=== PATIENT | female | born 1945 | race Caucasian/White ===

== ENCOUNTER 2024-04-02 00:10 | Inpatient (IN) | payer MEDICARE ==
[~2024-04-02] VITALS: Ht 162.6 cm; Wt 79.2 kg
[2024-04-02 01:21] LABS: Albumin, Blood 3.1 g/dL (3.4-5.0); Albumin/Globulin Ratio 0.8 (0.8-1.8); Bilirubin, Total 1.1 mg/dL (0.1-1.0); Bun/Creatinine Ratio 15.1 (12.0-20.0); Calcium, Blood 8.6 mg/dL (8.5-10.1); Creatinine, Blood 0.86 mg/dL (0.40-1.00); Globulin, Blood 3.9 g/dL (2.2-4.0)
[2024-04-02 01:35] LABS: BASOPHILS ABSOLUTE AUTO 0.04 K/mm3 (0.00-0.23); BASOPHILS PERCENT AUTO 0 % (0-2); EOSINOPHILS ABSOLUTE AUTO 0.01 K/mm3 (0.00-0.68); EOSINOPHILS PERCENT AUTO 0 % (0-6); Hematocrit 34.8 % (33.0-51.0); Hemoglobin 11.5 g/dL (11.5-16.0); IMMATURE GRAN ABSOLUTE AUTO 0.11 K/mm3 (0.00-0.10); IMMATURE GRAN PERCENT AUTO 1 % (0-1); LYMPHOCYTES ABSOLUTE AUTO 0.76 K/mm3 (0.84-5.20); LYMPHOCYTES PERCENT AUTO 4 % (21-46); MONOCYTES ABSOLUTE AUTO 1.79 K/mm3 (0.16-1.47); MONOCYTES PERCENT AUTO 9 % (4-13); Mean Corpuscular HGB 28.7 pg (26.0-34.0); Mean Corpuscular Volume 87 fL (80-100); Mean Platelet Volume 10.5 fL (9.1-12.4); NEUTROPHILS ABSOLUTE AUTO 16.53 K/mm3 (1.96-9.15); NEUTROPHILS PERCENT AUTO 86 % (41-73); Platelet Count 299 K/mm3 (150-400); RDW Standard Deviation 45.2 fL (35.1-46.3); Red Blood Cell Count 4.01 M/mm3 (3.80-5.20); White Blood Cell Count 19.24 K/mm3 (4.00-11.30)
[2024-04-02 01:56] LABS: Influenza A, PCR NEGATIVE (NEGATIVE); Influenza B, PCR NEGATIVE (NEGATIVE); Resp Syncytial Virus, PCR NEGATIVE (NEGATIVE); SARS-Cov-2 (COVID-19) PCR, MMC NEGATIVE (NEGATIVE)
[2024-04-02] MEDS ORDERED: Azithromycin 500 MG in NS 250 ML IV ONE (02:05)
[2024-04-02] MEDS ORDERED: CefTRIAXone Sodium 1,000 MG in NS 50 ML IV ONE (02:05)
[2024-04-02] MEDS ORDERED: Azithromycin 500 MG in NS 250 ML IV SCH (02:05)
[2024-04-02] MEDS ORDERED: NS 1,000 ML IV SCH ×2 (02:10→03:40)
[2024-04-02] MEDS ORDERED: Magnesium Hydroxide Conc 10 ML UDC PO PRN (03:40)
[2024-04-02] MEDS ORDERED: FLU VACC TS2024-25(6MOS UP)/PF 45 MCG/0.5 ML SYRINGE IM ONE (03:40)
[2024-04-02] MEDS ORDERED: Budeprion Xl300 MG PO (03:42)
[2024-04-02] MEDS ORDERED: ATOR20 PO (03:42)
[2024-04-02] MEDS ORDERED: PANT40 PO (03:42)
[2024-04-02] MEDS ORDERED: LOSARTAN-HCTZ1 EACH PO (03:43)
[2024-04-02 04:26] VITALS: BP 140/75
[2024-04-02 05:18] LABS: BASOPHILS ABSOLUTE AUTO 0.03 K/mm3 (0.00-0.23); BASOPHILS PERCENT AUTO 0 % (0-2); EOSINOPHILS PERCENT AUTO 0 % (0-6); Hematocrit 33.7 % (33.0-51.0); Hemoglobin 10.8 g/dL (11.5-16.0); IMMATURE GRAN ABSOLUTE AUTO 0.12 K/mm3 (0.00-0.10); IMMATURE GRAN PERCENT AUTO 1 % (0-1); LYMPHOCYTES ABSOLUTE AUTO 1.04 K/mm3 (0.84-5.20); LYMPHOCYTES PERCENT AUTO 6 % (21-46); MONOCYTES ABSOLUTE AUTO 1.53 K/mm3 (0.16-1.47); MONOCYTES PERCENT AUTO 9 % (4-13); Mean Corpuscular HGB 27.9 pg (26.0-34.0); Mean Corpuscular Volume 87 fL (80-100); Mean Platelet Volume 10.5 fL (9.1-12.4); NEUTROPHILS ABSOLUTE AUTO 14.89 K/mm3 (1.96-9.15); NEUTROPHILS PERCENT AUTO 85 % (41-73); Platelet Count 293 K/mm3 (150-400); RDW Coefficient Variation 14.2 % (11.7-14.2); RDW Standard Deviation 45.5 fL (35.1-46.3); Red Blood Cell Count 3.87 M/mm3 (3.80-5.20); White Blood Cell Count 17.61 K/mm3 (4.00-11.30)
[2024-04-02 05:55] LABS: Anti-Xa UFH, PHA Monitoring <0.10 IU/mL; International Normalized Ratio 1.04; Prothrombin Time Results 11.1 Sec (9.7-11.5)
[2024-04-02] MEDS ORDERED: Ipratropium/Albuterol SulF 2.5-0.5MG/3 ML Amp INH PRN (05:55)
[2024-04-02 06:13] LABS: Albumin, Blood 2.8 g/dL (3.4-5.0); Albumin/Globulin Ratio 0.8 (0.8-1.8); Bilirubin, Total 0.7 mg/dL (0.1-1.0); Calcium, Blood 8.5 mg/dL (8.5-10.1); Creatinine, Blood 0.92 mg/dL (0.40-1.00); Globulin, Blood 3.6 g/dL (2.2-4.0); Potassium, Blood 3.5 mmol/L (3.5-5.5); Total Protein, Blood 6.4 g/dL (6.4-8.2)
[2024-04-02] MEDS ORDERED: Heparin Sodium,Porcine/0.5 NS 500 ML IV SCH (06:50)
[2024-04-02] MEDS ORDERED: Heparin Sodium 5000 Units/ML 1ML MDV IV ONE ×3 (06:50→22:20)
--- NOTE | 2024-04-02 07:22 | NUR ---
SHIFT SUMMARY PT ADMITTED AT 0420 FOR RESPIRATORY FAILURE, AND PNEUMONIA. CTA RESULT ALSO SHOW RIGHT LOWER LOBE PE. PT ON 5L NC WITH O2 SATS > 90%. PT SOB WITH ANY ACTIVITY AND HAS INCREASED WORK OF BREATHING. PT ABLE TO TRANSFER TO BSC WITH ASSISTANCE. PHARMACY TO DOSE HEPARIN DRIP FOR PE- ORDERS RECEIVED DURING BEDSIDE SHIFT REPORT WITH ONCOMING RN. ONCOMING RNRAVEN, AWARE OF HEPARIN ORDERS. BED IN LOWEST POSITION, CALL LIGHT WITHIN REACH, SIDERAILS UP X2.
[2024-04-02 08:00] VITALS: BP 168/81
[2024-04-02] MEDS ORDERED: Enoxaparin 40 MG/0.4 ML SYR SC SCH (09:00)
[2024-04-02] MEDS ORDERED: Lactobacil 2-S.Thermo-Bifido 1 1 Cap PO SCH (09:00)
[2024-04-02 15:04] VITALS: BP 161/76
[2024-04-02] MEDS ORDERED: Dose Adjust by Pharmacy XX STA ×2 (15:38→22:22)
--- NOTE | 2024-04-02 16:40 | NUR ---
PT IS ON HEPARIN DRIP, PT IS ON 4L NC AND IS VERY WINDED UPON AMBULATION. PT HAS HAD NO C/O PAIN DURING THE SHIFT. NO QUESTIONS OR CONCERNS AT THIS TIME
[2024-04-02 19:27] VITALS: BP 162/86
[2024-04-02] MEDS ORDERED: Melatonin 5 MG Tablet PO PRN (19:55)
[2024-04-02] MEDS ORDERED: Saline Nasal Spray 45 ML PRN (22:55)
[2024-04-02] MEDS ORDERED: Temazepam 7.5 MG Cap PO ONE (22:55)
--- NOTE | 2024-04-03 02:54 | NUR ---
DR. WALLACE NOTIFIED OF POSITIVE BLOOD CULTUER, GRAM + COCCI IN CLUSTERS. PT ON AZYTHROMYCIN AND ROCEPHIN. NO NEW ORDERS
[2024-04-03 03:41] VITALS: BP 148/68
[2024-04-03 04:41] LABS: BASOPHILS ABSOLUTE AUTO 0.03 K/mm3 (0.00-0.23); BASOPHILS PERCENT AUTO 0 % (0-2); EOSINOPHILS ABSOLUTE AUTO 0.04 K/mm3 (0.00-0.68); EOSINOPHILS PERCENT AUTO 0 % (0-6); Hematocrit 31.8 % (33.0-51.0); Hemoglobin 10.1 g/dL (11.5-16.0); IMMATURE GRAN ABSOLUTE AUTO 0.08 K/mm3 (0.00-0.10); IMMATURE GRAN PERCENT AUTO 1 % (0-1); LYMPHOCYTES ABSOLUTE AUTO 1.44 K/mm3 (0.84-5.20); LYMPHOCYTES PERCENT AUTO 12 % (21-46); MONOCYTES PERCENT AUTO 12 % (4-13); Mean Corpuscular HGB 28.1 pg (26.0-34.0); Mean Corpuscular HGB Conc 31.8 g/dL (31.5-36.5); Mean Corpuscular Volume 89 fL (80-100); Mean Platelet Volume 9.9 fL (9.1-12.4); NEUTROPHILS ABSOLUTE AUTO 9.41 K/mm3 (1.96-9.15); NEUTROPHILS PERCENT AUTO 75 % (41-73); Platelet Count 279 K/mm3 (150-400); RDW Coefficient Variation 14.1 % (11.7-14.2); RDW Standard Deviation 45.5 fL (35.1-46.3); Red Blood Cell Count 3.59 M/mm3 (3.80-5.20)
[2024-04-03 05:11] LABS: Albumin, Blood 2.5 g/dL (3.4-5.0); Anion Gap 11 mmol/L (3-11); Blood Urea Nitrogen 9 mg/dL (8-24); Bun/Creatinine Ratio 10.3 (12.0-20.0); CO2, Blood 20 mmol/L (21-32); Calcium, Blood 8.1 mg/dL (8.5-10.1); Chloride, Blood 109 mmol/L (98-108); Creatinine, Blood 0.88 mg/dL (0.40-1.00); Glomerular Filtration Rate 67 (60-); Glucose, Blood 105 mg/dL (70-99); Magnesium, Blood 1.9 mg/dL (1.6-2.4); Phosphorus, Blood 2.9 mg/dL (2.5-4.9); Potassium, Blood 3.3 mmol/L (3.5-5.5); Sodium, Blood 137 mmol/L (136-145)
[2024-04-03] MEDS ORDERED: Dose Adjust by Pharmacy XX STA ×2 (05:34→12:56)
[2024-04-03] MEDS ORDERED: Heparin Sodium 5000 Units/ML 1ML MDV IV ONE (05:35)
[2024-04-03] MEDS ORDERED: CefTRIAXone Sodium 1,000 MG in NS 100 ML IV SCH (06:00)
[2024-04-03] MEDS ORDERED: Azithromycin 500 MG in NS 250 ML IV SCH (06:00)
--- NOTE | 2024-04-03 06:24 | NUR ---
SHIFT SUMMARY PT SLEPT SHORT PERIODS DURING THE NIGHT AFTER 1 X ORDER FOR TEMAZEPAM GIVEN. PT UNABLE TO SLEEP AT ALL WITH MELATONIN. PT WITH PRODUCTIVE COUGH WITH THICK YELLOW SPUTUM. ATTEMPTED TO USE MASK INSTEAD OF NC FOR OXYGEN DUE TO NASAL CONGESTION, BUT PT STATED SHE NEEDED TO COUGH UP PHLEGM TOO OFTEN FOR THE MASK. NASAL SPRAY ORDERED AND GIVEN PER EMAR WITH SOME HELP TO NASAL CONGESTION. PT CONTINUES TO BE TACHYPNIC, SOB AND WITH INCREASED WORK OF BREATHING WITH ANY ACTIVITY, INCLUDING COUGHING AND TALKING. PUREWICK IN PLACE. O2 TURNED UP TO 5L NC TO MAINTAIN SATS >90%. IV ANTIBIOTICS CONTINUE PER EMAR. DR. WALLACE NOTIFIED OF PRELIMINARY POSITIVE BLOOD CULTURE- GRAM + COCCI IN CLUSTERS. NO CHANGES MADE TO ANTIBIOTICS. BED IN LOWEST POSITION, CALL LIGHT WITHIN REACH, SIDE RAILS UP X2.
[2024-04-03 07:49] VITALS: BP 142/86
[2024-04-03 15:51] VITALS: BP 136/80
--- NOTE | 2024-04-03 16:58 | NUR ---
PT WAS TAKEN OFF HEPRIN LATER THIS AFTERNOON. FLUIDS STILL GOING CONTINUOUS.PT HAD NO C/O PAIN DURING THE SHIFT. PT HAS NO QUESTIONS OR CONCERNS AT THIS TIME.
[2024-04-03] MEDS ORDERED: Apixaban 5 MG Tab PO SCH (18:00)
[2024-04-03] MEDS ORDERED: Potassium Chloride 20 MEQ/15 ML UDC PO ONE (20:00)
[2024-04-03 21:02] VITALS: BP 151/88
[2024-04-03] MEDS ORDERED: Benzonatate 100 MG Cap PO PRN (21:45)
[2024-04-03] MEDS ORDERED: Temazepam 7.5 MG Cap PO ONE (21:45)
[2024-04-04 03:10] VITALS: BP 147/76
[2024-04-04] MEDS ORDERED: Morphine Sulfate 4 MG/1 ML Injection IV ONE (04:30)
[2024-04-04 05:17] LABS: Base Excess Venous -4.2 mmol/L; Bicarbonate Venous 21.3 mmol/L (24.0-30.0); PCO2 Venous 37.3 mmHg (38-42); pH Blood Venous 7.36 (7.34-7.37)
--- NOTE | 2024-04-04 06:04 | NUR ---
SHIFT SUMMARY PT CONTINUES TO HAVE INCREASED WORK OF BREATHING, SOB WITH ANY ACTIVITY, HACKING COUGH AND TACHYPNEA. AT START OF SHIFT PT WAS ON 8 L PER OXYMASK, SHE WAS ABLE TO BE WEANED TO 3L DURING THE NIGHT, BUT THEN NEEDED TO BE INCREASED TO 4L AT 0150 FOR DESATURATION. AT 0305, PT AGAIN DESAT'D TO 84% AFTER A COUGHING EPISODE, WITH A HEART RATE OF 117. O2 INCREASED TO 7, THEN 8L WITH SATS 88-90%. RT TO BEDSIDE FOR TREATMENT AND EVALUATION. RT RECOMMENDED AIRVO. HOSPITALIST CALLED AND EVENTS OF THE NIGHT DISCUSSED- ORDERS FOR CXR, VBG, AIRVO, AND MORPHINE X1 FOR AIR HUNGER. PT WITH LESS DISTRESS AFTER MORPHINE GIVEN AND AIRVO STARTED. AIRVO SETTINGS PER RT, 50L AT 52%, O2 SATS CURRENTLY 90-94%. PUREWICK IN PLACE, IVF AND IV ANTIBIOTICS CONTINUE. PT MEDICATED WITH TESSALON HONORIO X2 PER EMAR. PT SLEPT SHORT PERIODS ONLY DURING THE NIGHT. BED IN LOWEST POSITION, CALL LIGHT WITHIN REACH, SIDERAILS UP X2.
[2024-04-04 06:09] LABS: BASOPHILS ABSOLUTE AUTO 0.02 K/mm3 (0.00-0.23); BASOPHILS PERCENT AUTO 0 % (0-2); EOSINOPHILS ABSOLUTE AUTO 0.06 K/mm3 (0.00-0.68); EOSINOPHILS PERCENT AUTO 1 % (0-6); Hematocrit 30.8 % (33.0-51.0); Hemoglobin 9.8 g/dL (11.5-16.0); IMMATURE GRAN ABSOLUTE AUTO 0.12 K/mm3 (0.00-0.10); IMMATURE GRAN PERCENT AUTO 1 % (0-1); LYMPHOCYTES ABSOLUTE AUTO 1.04 K/mm3 (0.84-5.20); LYMPHOCYTES PERCENT AUTO 9 % (21-46); MONOCYTES PERCENT AUTO 9 % (4-13); Mean Corpuscular HGB 28.4 pg (26.0-34.0); Mean Corpuscular HGB Conc 31.8 g/dL (31.5-36.5); Mean Corpuscular Volume 89 fL (80-100); Mean Platelet Volume 10.5 fL (9.1-12.4); NEUTROPHILS ABSOLUTE AUTO 9.73 K/mm3 (1.96-9.15); NEUTROPHILS PERCENT AUTO 81 % (41-73); Platelet Count 316 K/mm3 (150-400); RDW Coefficient Variation 14.3 % (11.7-14.2); RDW Standard Deviation 46.5 fL (35.1-46.3); Red Blood Cell Count 3.45 M/mm3 (3.80-5.20); White Blood Cell Count 12.07 K/mm3 (4.00-11.30)
[2024-04-04 06:27] LABS: Albumin, Blood 2.5 g/dL (3.4-5.0); Anion Gap 11 mmol/L (3-11); Blood Urea Nitrogen 8 mg/dL (8-24); CO2, Blood 23 mmol/L (21-32); Calcium, Blood 8.4 mg/dL (8.5-10.1); Chloride, Blood 113 mmol/L (98-108); Creatinine, Blood 0.89 mg/dL (0.40-1.00); Glomerular Filtration Rate 66 (60-); Glucose, Blood 86 mg/dL (70-99); Phosphorus, Blood 3.2 mg/dL (2.5-4.9); Potassium, Blood 3.8 mmol/L (3.5-5.5); Sodium, Blood 143 mmol/L (136-145)
--- NOTE | 2024-04-04 07:30 | NUR ---
ASSUMED CARE OF PATIENT. AWAKE DURING SHIFT-CHANGE REPORT. AIRVO @ 50LPM/53% c FAN BLOWING AT HER FACE. CONTINUOUS BiOx IN PLACE; 94%. TACHYPNIC IN 30s. NO ACUTE NEEDS.
[2024-04-04 07:59] VITALS: BP 140/81
[2024-04-04] MEDS ORDERED: Furosemide 10 MG / ML 2ML Vial IV ONE (13:00)
[2024-04-04 15:56] VITALS: BP 154/85
--- NOTE | 2024-04-04 17:56 | NUR ---
A&Ox4. PLEASANT AND COOPERATIVE WITH CARE. CALLS APPROPRIATELY AND IS ABLE TO ADVOCATE NEEDS EFFECTIVELY. MEDS WHOLE WITH FLUIDS. BEDREST SECONDARY TO OXYGEN DEMANDS, ERGO PUREWICK IN PLACE DESPITE URINARY CONTINENCE. NS DC'd. PULMO COSULTED; ECHO DONE AND YIELDED EF OF 50% ELEVATED BNP AND PROCAL Tx ONE-TIME DOSE OF IV FUROSEMIDE. TELE SINUS c BBB. COARSE CRACKLES THROUGHOUT c RALES IN RLL. CXR +BLL PNA. PE NOT NOTED. SPUTUM CULTURE COLLECTED AND SENT TO BED IN LOWEST POSITION. CALL LIGHT WITHIN REACH. ALL NEEDS MET. REPORT TO ONCOMING NURSE.
[2024-04-04 19:26] VITALS: BP 158/95
[2024-04-05 02:56] VITALS: BP 147/81
[2024-04-05 05:12] LABS: BASOPHILS ABSOLUTE AUTO 0.02 K/mm3 (0.00-0.23); BASOPHILS PERCENT AUTO 0 % (0-2); EOSINOPHILS PERCENT AUTO 2 % (0-6); Hematocrit 31.3 % (33.0-51.0); IMMATURE GRAN ABSOLUTE AUTO 0.13 K/mm3 (0.00-0.10); IMMATURE GRAN PERCENT AUTO 1 % (0-1); LYMPHOCYTES PERCENT AUTO 12 % (21-46); MONOCYTES ABSOLUTE AUTO 1.16 K/mm3 (0.16-1.47); MONOCYTES PERCENT AUTO 10 % (4-13); Mean Corpuscular HGB 28.2 pg (26.0-34.0); Mean Corpuscular HGB Conc 31.9 g/dL (31.5-36.5); Mean Corpuscular Volume 88 fL (80-100); Mean Platelet Volume 10.2 fL (9.1-12.4); NEUTROPHILS ABSOLUTE AUTO 8.37 K/mm3 (1.96-9.15); NEUTROPHILS PERCENT AUTO 74 % (41-73); Platelet Count 317 K/mm3 (150-400); RDW Coefficient Variation 13.8 % (11.7-14.2); Red Blood Cell Count 3.54 M/mm3 (3.80-5.20); White Blood Cell Count 11.28 K/mm3 (4.00-11.30)
[2024-04-05 05:47] LABS: Bun/Creatinine Ratio 10.2 (12.0-20.0); Calcium, Blood 8.5 mg/dL (8.5-10.1); Creatinine, Blood 0.88 mg/dL (0.40-1.00); Potassium, Blood 3.5 mmol/L (3.5-5.5)
[2024-04-05 07:39] VITALS: BP 138/96
--- NOTE | 2024-04-05 08:51 | NUR ---
THIS PT GAVE VERBAL PERMISSION FOR STUDENT NURSE TO PROVIDE CARE.
[2024-04-05] MEDS ORDERED: BUPROPION XL PO (13:54)
[2024-04-05] MEDS ORDERED: ALBU90OI INH (13:55)
[2024-04-05] MEDS ORDERED: IPRAT-ALBUT 0.5-3 ML PO (13:55)
[2024-04-05] MEDS ORDERED: FLUTICASONE-SA1 EAC9 INH (13:55)
--- NOTE | 2024-04-05 14:28 | NUR ---
PATIENT'S FAMILY TO BEDSIDE WITH PATIENT'S DOG. PATIENT TEARFUL AND SAYS HOW HAPPY SHE IS TO HAVE DAVID HERE WITH HER.
[2024-04-05] MEDS ORDERED: Ipratropium/Albuterol SulF 2.5-0.5MG/3 ML Amp INH SCH (15:35)
[2024-04-05 16:04] VITALS: BP 159/82
[2024-04-05] MEDS ORDERED: MethylPREDNISolone Sod Succ 40 MG VIAL IV SCH (18:00)
--- NOTE | 2024-04-05 18:37 | NUR ---
CALL FROM TELE: PATIENT HAD A 6-SECOND RUN OF V-TACH FOR THE SECOND TIME THIS EVENING. CALL TO ON-CALL PROVIDER, FUNMI: ORDERS FOR K+ AND MAG: IF K <4 OR MAG <2, NOTIFY HIM. ORDERS PLACED. WILL NOTIFY NIGHT RN.
--- NOTE | 2024-04-05 18:43 | NUR ---
END OF SHIFT SUMMARY: A&Ox4. PLEASANT AND COOPERATIVE WITH CARE. CALLS APPROPRIATELY AND IS ABLE TO ADVOCATE NEEDS EFFECTIVELY. BEDREST SECONDARY TO OXYGEN DEMANDS. SEEN BY PULMO; CHANGES TO OXYGEN TO HFNC WITH ORDERS TO MAINTAIN SPO2 >88% AND AMBULATE IN HALLWAYS AFTER PT/OT EVAL TOMORROW 04/06/24. MEDS WHOLE WITH FLUIDS. NO C/O PAIN OR DISCOMFORT TODAY. STARTED IV STEROIDS. CXR. SOME HEMOPTYSIS NOTED PULMO ATTRIBUTES TO OXYGEN. CXR CLEAR. BED IN LOWEST POSITION, CALL LIGHT WITHIN REACH, ALL NEEDS MET. REPORT TO ONCOMING NURSE.
[2024-04-05 19:31] LABS: Magnesium, Blood 1.7 mg/dL (1.6-2.4); Potassium, Blood 3.1 mmol/L (3.5-5.5)
[2024-04-05 19:46] VITALS: BP 152/79
[2024-04-05] MEDS ORDERED: Potassium Chloride 10 Meq Tablet SA PO ONE (19:50)
[2024-04-05] MEDS ORDERED: Magnesium Sulf 2 GM/Water 50ML 50 ML IV ONE (19:50)
[2024-04-05] MEDS ORDERED: Potassium Chloride 40 MEQ IV ONE (19:50)
[2024-04-05] MEDS ORDERED: Potassium Chloride 40 MEQ in NS 250 ML IV SCH (20:00)
[2024-04-06 04:25] VITALS: BP 149/75
[2024-04-06 04:58] LABS: BASOPHILS ABSOLUTE AUTO 0.02 K/mm3 (0.00-0.23); BASOPHILS PERCENT AUTO 0 % (0-2); EOSINOPHILS PERCENT AUTO 0 % (0-6); Hematocrit 32.3 % (33.0-51.0); Hemoglobin 10.4 g/dL (11.5-16.0); IMMATURE GRAN ABSOLUTE AUTO 0.14 K/mm3 (0.00-0.10); IMMATURE GRAN PERCENT AUTO 2 % (0-1); LYMPHOCYTES ABSOLUTE AUTO 0.58 K/mm3 (0.84-5.20); LYMPHOCYTES PERCENT AUTO 6 % (21-46); MONOCYTES PERCENT AUTO 1 % (4-13); Mean Corpuscular HGB 27.7 pg (26.0-34.0); Mean Corpuscular HGB Conc 32.2 g/dL (31.5-36.5); Mean Corpuscular Volume 86 fL (80-100); Mean Platelet Volume 9.9 fL (9.1-12.4); NEUTROPHILS ABSOLUTE AUTO 8.49 K/mm3 (1.96-9.15); NEUTROPHILS PERCENT AUTO 91 % (41-73); Platelet Count 363 K/mm3 (150-400); RDW Coefficient Variation 13.9 % (11.7-14.2); RDW Standard Deviation 43.8 fL (35.1-46.3); Red Blood Cell Count 3.76 M/mm3 (3.80-5.20); White Blood Cell Count 9.33 K/mm3 (4.00-11.30)
--- NOTE | 2024-04-06 05:30 | NUR ---
SHIFT SUMMARY A&0X4, RECEIVED POTASSIUM & MG REPLACEMENTS PER NEW ORDERS, NO CALLS FROM TELEMETRY THIS SHIFT W/ANY FURTHER EPISODES SVT OR BIGEMENY. RT ATTEMPTED TO WEAN 02 TO HUMIDIFIED NON HEATED HI FLOW ON SMALLER GREEN CANNULA AT 10-15 LITERS AND PT TOLERATED THIS FOR SEVERAL HRS W/ SATS 88% OR ABOVE HOWEVER WHEN IN DEEP SLEEP SAT DROPPED TO MID 80s. WOKE PT UP TO DO SOME DEEP BREATHING & PULLED UP/REPOSITIONED IN BED THEN BACK UP TO 90% HOWEVER SOON SLEEPING AGAIN DROPPED BACK TO MID 80s & THIS KEPT HAPPENING THEREFORE BY END OF SHIFT BACK ON 30 LITERS 57% HUMIDIFIED HEATED HI FLOW TO KEEP SATS 88 & ABOVE. VSS. NSR WITH BBB PER TELEMETRY, SOB W/ EXERTION BUT NAD,INSTRUCTED PT OF NEED TO INCREASE ACTIVITY TODAY PT VOICED FEELING DISCOURAGED -EXPLAINED TAKES TIME AND REST ALSO IMPORTANT WITH PNEUMONIA.
[2024-04-06 05:48] LABS: Bun/Creatinine Ratio 11.2 (12.0-20.0); Calcium, Blood 8.5 mg/dL (8.5-10.1); Creatinine, Blood 0.72 mg/dL (0.40-1.00); Potassium, Blood 4.5 mmol/L (3.5-5.5)
[2024-04-06 07:21] VITALS: BP 183/88
[2024-04-06] MEDS ORDERED: HydrALAZINE HCl 20 MG / ML 1ML Vial IV PRN (08:45)
[2024-04-06] MEDS ORDERED: Furosemide 10 MG/ML 4ML Vial IV SCH (09:00)
[2024-04-06 09:47] VITALS: BP 151/88
[2024-04-06] MEDS ORDERED: NS 250 ML IV PRN (13:55)
--- NOTE | 2024-04-06 15:16 | NUR ---
NOTIFIED DR. HE OF ONCOLOGY SOCIAL WORKER CALLING TO STATE PATIENT IS HAVING MORE FREQUENT PVC'S AND RUNNING BIGEMINY. DR. HE TO REVIEW PATIENTS LABS.
[2024-04-06 15:38] VITALS: BP 180/110
--- NOTE | 2024-04-06 17:13 | NUR ---
SHIFT SUMMARY PATIENT TITRATED OFF AIRVOW AND NOW ON 15L HIGHFLOW NC. CONTINUOUSE PULSE OX GOAL OF 88-90%. DR. HE ORDERED BIPAP TONIGHT IF PATIENT CAN TOLERTAE FOR YANY AND OXYGEN REQUIREMENTS. PATIENTS DOG WAS BROUGHT IN TO VISIT. PRINT BINDING AND FINISHING WORKER CALLED TO REPORT FREQUENT PVC'S AN RUN OF MYRTLE, DR HE WAS TO REVIEW LABS. ELECTROLYTES HAD BEEN REPLACED OVERNIGHT. PATIENT SITTING UP IN BED, PRODUCTIVE COUGH, CLEARING. RECLINER PLACED IN PATIENTS ROOM TO ATTEMPT UP IN CHAIR IF OXYGENATION CAN TOLERATE. ABLE TO MAKE NEEDS KNOWN. ORIENTED TO ABILITY AND NOT ATTEMPTING TO GET OOB. PATIENT WAS ASSISTED UP TO BSC 2 ASSIST TODAY.
[2024-04-06 19:43] VITALS: BP 150/75
[2024-04-07 04:42] VITALS: BP 134/85
--- NOTE | 2024-04-07 04:52 | NUR ---
A&OX4, VSS, DENIED PAIN THIS SHIFT, MEDICATED 1X FOR C/O COUGH, REMAINS ON 10L O2=94%, ABLE TO TOLERATE BIPAP FROM 11PM-0430 BUT STATES SHE MAY HAVE ONLY SLEPT ABOUT 1.5HRS, AWAKE WATCHING TV AT THIS TIME, CALL LIGHT IN REACH, WILL CONT TO MONITOR UNTIL REPORT GIVEN TO ONCOMING NURSE.
[2024-04-07 05:06] LABS: BASOPHILS ABSOLUTE AUTO 0.02 K/mm3 (0.00-0.23); BASOPHILS PERCENT AUTO 0 % (0-2); EOSINOPHILS PERCENT AUTO 0 % (0-6); Hematocrit 30.9 % (33.0-51.0); Hemoglobin 10.1 g/dL (11.5-16.0); IMMATURE GRAN ABSOLUTE AUTO 0.27 K/mm3 (0.00-0.10); IMMATURE GRAN PERCENT AUTO 1 % (0-1); LYMPHOCYTES ABSOLUTE AUTO 0.96 K/mm3 (0.84-5.20); LYMPHOCYTES PERCENT AUTO 5 % (21-46); MONOCYTES ABSOLUTE AUTO 0.51 K/mm3 (0.16-1.47); MONOCYTES PERCENT AUTO 2 % (4-13); Mean Corpuscular HGB 28.4 pg (26.0-34.0); Mean Corpuscular HGB Conc 32.7 g/dL (31.5-36.5); Mean Corpuscular Volume 87 fL (80-100); Mean Platelet Volume 10.2 fL (9.1-12.4); NEUTROPHILS ABSOLUTE AUTO 19.81 K/mm3 (1.96-9.15); NEUTROPHILS PERCENT AUTO 92 % (41-73); Platelet Count 420 K/mm3 (150-400); RDW Coefficient Variation 13.9 % (11.7-14.2); RDW Standard Deviation 44.5 fL (35.1-46.3); Red Blood Cell Count 3.56 M/mm3 (3.80-5.20); White Blood Cell Count 21.57 K/mm3 (4.00-11.30)
[2024-04-07] MEDS ORDERED: OMEP20ER PO (05:17)
[2024-04-07 05:35] LABS: Bun/Creatinine Ratio 24.4 (12.0-20.0); Calcium, Blood 8.8 mg/dL (8.5-10.1); Creatinine, Blood 0.82 mg/dL (0.40-1.00); Potassium, Blood 3.9 mmol/L (3.5-5.5)
[2024-04-07] MEDS ORDERED: Calcium Carbonate 500 MG Tab Chew PO ONE (05:35)
[2024-04-07] MEDS ORDERED: Omeprazole 20 MG CapCR PO SCH (06:00)
[2024-04-07 07:18] VITALS: BP 179/90
[2024-04-07] MEDS ORDERED: Losartan Potassium 50 MG Tab PO SCH (09:00)
[2024-04-07] MEDS ORDERED: Calcium Carbonate 500 MG Tab Chew PO PRN (10:55)
[2024-04-07] MEDS ORDERED: Peg 400/Hypromellose/Glycerin 15 DROP/ML BTL BOTHEYES PRN (11:30)
[2024-04-07] MEDS ORDERED: TraZODone HCl 50 MG Tab PO PRN (16:10)
[2024-04-07] MEDS ORDERED: MethylPREDNISolone Sod Succ 40 MG VIAL IV SCH (17:00)
--- NOTE | 2024-04-07 17:11 | NUR ---
SHIFT SUMMARY: PATIENT ALERT AND ORIENTED X4; PATIENT IS INCONTINENT; PUREWICK IN PLACE; ONE PERSON SBA TO BEDSIDE COMMODE PATIENT ON 10 LITERS OXYGEN VIA HIGH FLOW NASAL CANNULA; MAINTAINING OXYYGEN SATURATION BETWEEN 88 AND 91% PATIENT ENCOURAGED TO SIT AT EDGE OF BED OR BEDSIDE CHAIR AND TO CONTINUE TO USE FLUTTER VALVE AND INCENTIVE SPIROMETER CALL LIGHT WITHIN REACH; FAMILY IN ROOM PERIODICALLY THROUGHOUT SHIFT; PLAN OF CARE ONGOING
[2024-04-07 18:16] VITALS: BP 135/88
[2024-04-07 19:29] VITALS: BP 153/57
[2024-04-08 01:59] VITALS: BP 146/71
[2024-04-08 05:14] LABS: BASOPHILS ABSOLUTE AUTO 0.03 K/mm3 (0.00-0.23); BASOPHILS PERCENT AUTO 0 % (0-2); EOSINOPHILS PERCENT AUTO 0 % (0-6); Hematocrit 32.4 % (33.0-51.0); Hemoglobin 10.2 g/dL (11.5-16.0); IMMATURE GRAN ABSOLUTE AUTO 0.37 K/mm3 (0.00-0.10); IMMATURE GRAN PERCENT AUTO 2 % (0-1); LYMPHOCYTES ABSOLUTE AUTO 1.24 K/mm3 (0.84-5.20); LYMPHOCYTES PERCENT AUTO 6 % (21-46); MONOCYTES ABSOLUTE AUTO 0.93 K/mm3 (0.16-1.47); MONOCYTES PERCENT AUTO 5 % (4-13); Mean Corpuscular HGB 27.9 pg (26.0-34.0); Mean Corpuscular HGB Conc 31.5 g/dL (31.5-36.5); Mean Corpuscular Volume 89 fL (80-100); Mean Platelet Volume 10.1 fL (9.1-12.4); NEUTROPHILS ABSOLUTE AUTO 17.54 K/mm3 (1.96-9.15); NEUTROPHILS PERCENT AUTO 87 % (41-73); Platelet Count 425 K/mm3 (150-400); RDW Standard Deviation 45.4 fL (35.1-46.3); Red Blood Cell Count 3.65 M/mm3 (3.80-5.20); White Blood Cell Count 20.11 K/mm3 (4.00-11.30)
[2024-04-08 05:48] LABS: Bun/Creatinine Ratio 31.2 (12.0-20.0); Calcium, Blood 8.6 mg/dL (8.5-10.1); Creatinine, Blood 0.96 mg/dL (0.40-1.00); Potassium, Blood 4.1 mmol/L (3.5-5.5)
[2024-04-08 07:26] VITALS: BP 139/80
--- NOTE | 2024-04-08 16:32 | NUR ---
SHIFT SUMMARY: NO EVENTS OR CHANGES WITH THE PATIENT THROUGHOUT THE SHIFT. SHE REMAINS ON 10 L N/C TO MAINTAIN OXYGEN SATURATION OF 88-90%. SHE HAS BEEN GETTING UP TO THE BEDSIDE CHAIR AND USING THE BEDSIDE COMMODE; SHE HAS BEEN CONTINENT. SHE IS CURRENTLY IN BED, ALERT, CALL LIGHT WITHIN REACH, NO SIGNS OR SYMPTOMS OF DISTRESS, PLAN OF CARE ONGOING. WAITING FOR PATIENT'S OXYGEN NEEDS TO DECREASE PRIOR TO DISCHARGE.
[2024-04-08 19:21] VITALS: BP 106/70
[2024-04-09 04:45] VITALS: BP 141/72
[2024-04-09 05:16] LABS: BASOPHILS ABSOLUTE AUTO 0.01 K/mm3 (0.00-0.23); BASOPHILS PERCENT AUTO 0 % (0-2); EOSINOPHILS PERCENT AUTO 0 % (0-6); Hematocrit 35.1 % (33.0-51.0); Hemoglobin 11.1 g/dL (11.5-16.0); IMMATURE GRAN ABSOLUTE AUTO 0.42 K/mm3 (0.00-0.10); IMMATURE GRAN PERCENT AUTO 2 % (0-1); LYMPHOCYTES ABSOLUTE AUTO 1.16 K/mm3 (0.84-5.20); LYMPHOCYTES PERCENT AUTO 7 % (21-46); MONOCYTES ABSOLUTE AUTO 0.51 K/mm3 (0.16-1.47); MONOCYTES PERCENT AUTO 3 % (4-13); Mean Corpuscular HGB 27.8 pg (26.0-34.0); Mean Corpuscular HGB Conc 31.6 g/dL (31.5-36.5); Mean Corpuscular Volume 88 fL (80-100); Mean Platelet Volume 10.1 fL (9.1-12.4); NEUTROPHILS ABSOLUTE AUTO 15.67 K/mm3 (1.96-9.15); NEUTROPHILS PERCENT AUTO 88 % (41-73); Platelet Count 489 K/mm3 (150-400); RDW Standard Deviation 45.1 fL (35.1-46.3); Red Blood Cell Count 3.99 M/mm3 (3.80-5.20); White Blood Cell Count 17.77 K/mm3 (4.00-11.30)
[2024-04-09 05:35] LABS: Bun/Creatinine Ratio 35.8 (12.0-20.0); Calcium, Blood 8.5 mg/dL (8.5-10.1); Creatinine, Blood 0.92 mg/dL (0.40-1.00)
--- NOTE | 2024-04-09 06:10 | NUR ---
A&OX4, VSS, SLEPT T/O THE NIGHT W/BIPAP ON, DENIES PAIN, MEDICATED FOR C/O INDIGESTION DURING THE NIGHT, REMAINS ON 10L VIA NC, SPO2=91% AT THIS TIME, RESTING WITH EYES CLOSED, CALL LIGHT IN REACH, WILL CONT TO MONITOR UNTIL REPORT GIVEN TO ONCOMING NURSE.
[2024-04-09 07:19] VITALS: BP 124/65
[2024-04-09 15:16] VITALS: BP 118/76
[2024-04-09] MEDS ORDERED: Omeprazole 20 MG CapCR PO SCH (16:30)
[2024-04-09] MEDS ORDERED: Mometasone/Formoterol MDI 200/5 mcg 13 GM INH SCH (16:35)
[2024-04-09] MEDS ORDERED: buPROPion HCL 150 MG TAB.SR.12H PO SCH (17:00)
--- NOTE | 2024-04-09 17:39 | NUR ---
SHIFT SUMMARY: PATIENT REMAINS ON 10 L OF NASAL CANNULA OXYGEN; TRAILED TITRATING HER DOWN TO 8 L TODAY, BUT PATIENT DESATURATED TO 82% AND WAS MAINTAINING; SO PATIENT HAD TO BE TURNED BACK UP TO 10 L; MAINTAINING AN OXYGEN SATURATION OF 88-96%; WITH THE OCCASSIONAL DESATURATION TO 84-87% TAKES SOME TIME TO RECOVER. SHE EXPRESSED TO STAFF TODAY THAT SHE HAS BEEN FEELING DEPRESSED AND THAT SHE USUALLY TAKES MEDICATION FOR DEPRESSION; VERIFIED WITH THE PATIENT WELLBUTRIN 300 MG ED DAILY. THIS WAS DISCUSSED WITH DR. HE AND SHE ORDERED. SHE IS IN BED, FAMILY AT BEDSIDE, CALL LIGHT WITHIN REACH, NO SIGNS OR SYMPTOMS OF DISTRESS, PLAN OF CARE ONGOING.
[2024-04-09 19:41] VITALS: BP 116/60
[2024-04-10 04:18] VITALS: BP 122/55
[2024-04-10 05:08] LABS: BASOPHILS ABSOLUTE AUTO 0.02 K/mm3 (0.00-0.23); BASOPHILS PERCENT AUTO 0 % (0-2); EOSINOPHILS PERCENT AUTO 0 % (0-6); Hematocrit 32.7 % (33.0-51.0); Hemoglobin 10.2 g/dL (11.5-16.0); IMMATURE GRAN ABSOLUTE AUTO 0.25 K/mm3 (0.00-0.10); IMMATURE GRAN PERCENT AUTO 2 % (0-1); LYMPHOCYTES PERCENT AUTO 8 % (21-46); MONOCYTES ABSOLUTE AUTO 0.27 K/mm3 (0.16-1.47); MONOCYTES PERCENT AUTO 2 % (4-13); Mean Corpuscular HGB 27.6 pg (26.0-34.0); Mean Corpuscular HGB Conc 31.2 g/dL (31.5-36.5); Mean Corpuscular Volume 89 fL (80-100); Mean Platelet Volume 10.3 fL (9.1-12.4); NEUTROPHILS ABSOLUTE AUTO 11.68 K/mm3 (1.96-9.15); NEUTROPHILS PERCENT AUTO 88 % (41-73); Platelet Count 418 K/mm3 (150-400); RDW Coefficient Variation 14.1 % (11.7-14.2); RDW Standard Deviation 45.6 fL (35.1-46.3); Red Blood Cell Count 3.69 M/mm3 (3.80-5.20); White Blood Cell Count 13.22 K/mm3 (4.00-11.30)
[2024-04-10 05:31] LABS: Bun/Creatinine Ratio 40.5 (12.0-20.0); Calcium, Blood 8.3 mg/dL (8.5-10.1); Creatinine, Blood 0.96 mg/dL (0.40-1.00); Potassium, Blood 4.3 mmol/L (3.5-5.5)
--- NOTE | 2024-04-10 06:45 | NUR ---
SHIFT SUMMARY PT ALERT AND ORIENTED TIMES 4. PT ADMITTED FOR ACUTE HYPOXIC RESPIRATORY FAILURE. PT ON BI-PAP AT NIGHT WITH 5L O2. PT ON TELE WITH PVC,PAC, AND BB. PT IS TIMES 1 ASSIST. PT IS ABLE TO MAKE NEEDS KNOWN TO STAFF. PT S BED IN LOW POSITION, CALL LIGHT WITHIN REACH, RAILS TIMES 2.
--- NOTE | 2024-04-10 07:12 | NUR ---
ASSUMED CARE: PT RESTING IN BED AT THIS TIME. 10L VIA NC, NSR ON TELE WITH PVCS AND PACS. DENIES NEEDS OR CONCERNS AT THIS TIME.
[2024-04-10 07:29] VITALS: BP 116/79
--- NOTE | 2024-04-10 13:45 | NUR ---
REPORT GIVEN TO LEONOR AQUINO
--- NOTE | 2024-04-10 17:48 | NUR ---
SHIFT SUMMARY PATIENT ALERT AND INTERACTIVE. PATIENT ANXIOUS AT TIMES. ABLE TO WALK SHORT DISTANCES WITH STAND BY ASSIST. PATIENT CONTINUES TO BE EASILY SOB. RE EDUCUATED PATIENT ON FLUTTER AND IS USE ALONG WITH COUGHING AND DEEP BREATHING. FAMILY AT BEDSIDE TODAY DISCUSSING SKILLED NURSING PLANS. PATIENT CONTINUES ON HIGH FLOW OXYGEN.
[2024-04-10 17:57] VITALS: BP 129/64
[2024-04-10 19:50] VITALS: BP 124/65
[2024-04-10] MEDS ORDERED: Apixaban 5 MG Tab PO SCH (21:00)
[2024-04-10] MEDS ORDERED: LORazepam 2 MG/ML 1ML Injection IV ONE (23:50)
[2024-04-11 04:24] LABS: Base Excess Venous 6.7 mmol/L; Bicarbonate Venous 30.5 mmol/L (24.0-30.0)
[2024-04-11 04:25] LABS: pH Blood Venous 7.57 (7.34-7.37)
[2024-04-11 04:45] LABS: BASOPHILS ABSOLUTE AUTO 0.02 K/mm3 (0.00-0.23); BASOPHILS PERCENT AUTO 0 % (0-2); EOSINOPHILS PERCENT AUTO 0 % (0-6); Hematocrit 31.1 % (33.0-51.0); Hemoglobin 9.8 g/dL (11.5-16.0); IMMATURE GRAN ABSOLUTE AUTO 0.26 K/mm3 (0.00-0.10); IMMATURE GRAN PERCENT AUTO 2 % (0-1); LYMPHOCYTES ABSOLUTE AUTO 2.31 K/mm3 (0.84-5.20); LYMPHOCYTES PERCENT AUTO 15 % (21-46); MONOCYTES ABSOLUTE AUTO 1.09 K/mm3 (0.16-1.47); MONOCYTES PERCENT AUTO 7 % (4-13); Mean Corpuscular HGB 27.8 pg (26.0-34.0); Mean Corpuscular HGB Conc 31.5 g/dL (31.5-36.5); Mean Corpuscular Volume 88 fL (80-100); Mean Platelet Volume 10.2 fL (9.1-12.4); NEUTROPHILS ABSOLUTE AUTO 11.83 K/mm3 (1.96-9.15); NEUTROPHILS PERCENT AUTO 76 % (41-73); Platelet Count 380 K/mm3 (150-400); RDW Coefficient Variation 14.2 % (11.7-14.2); RDW Standard Deviation 45.6 fL (35.1-46.3); Red Blood Cell Count 3.52 M/mm3 (3.80-5.20); White Blood Cell Count 15.51 K/mm3 (4.00-11.30)
[2024-04-11 05:06] LABS: Bun/Creatinine Ratio 38.5 (12.0-20.0); Calcium, Blood 8.1 mg/dL (8.5-10.1); Creatinine, Blood 1.04 mg/dL (0.40-1.00); Potassium, Blood 3.7 mmol/L (3.5-5.5)
[2024-04-11 05:35] VITALS: BP 126/61
--- NOTE | 2024-04-11 05:53 | NUR ---
SHIFT SUMMARY PT ALERT AND ORIENTED TIMES 4. PT ADMITTED FOR ACUTE HYPOXIC RESPIRATORY FAILURE. PT ON BI-PAP AT NIGHT WITH 5L O2. PT ON TELE WITH PVC,PAC, AND BB. PT IS TIMES 1 ASSIST. PT IS ABLE TO MAKE NEEDS KNOWN TO STAFF. OBTAINED ORDER FOR ATIVAN 0.5MG IV ONE TIME TO HELP WITH ANXIETY FROM WEARING MASK. PT TRIED USING BI-PAP MACHINE BUT NOT ABLE TO CONTINUE USE SHE IS EXTREMELY STUFFED UP. PT HAD CRIT LAB pH 7.57. CHILD CARE CENTRE MANAGER CONTACTED AND MONITORING. CHANGED NASAL CANNULA TO MASK AND O2 STATS IMPROVED FROM HIGH 80 S TO 96-99%. PT S BED IN LOW POSITION, CALL LIGHT WITHIN REACH, RAILS TIMES 2.
[2024-04-11 07:50] VITALS: BP 135/72
[2024-04-11] MEDS ORDERED: PredniSONE 20 MG Tab PO SCH (09:00)
[2024-04-11] MEDS ORDERED: Fluticasone 0.05% Nasal Spray SCH (09:00)
[2024-04-11 16:06] VITALS: BP 141/66
--- NOTE | 2024-04-11 17:30 | NUR ---
SHIFT SUMMARY PT A/Ox4, 1-2 PERSON ASSIST TO CHAIR, PUREWICK IN PLACE DUE TO DIURETICS, INCONTINENCE, AND INCREASED RISK FOR SKIN BREAKDOWN. PT DENIES PAIN T/O SHIFT BESIDES HEARTBURN THAT WAS RELIEVED BY BURPING. FAIR APPETITE. PT STARTED SHIFT ON 10 L/MIN VIA NASAL CANNULA, PT NOW ON 6 L/MIN VIA NASAL CANNULA AND SATURATION LEVELS REMAINING ABOVE 90%. PT DOES BECOME SHORT OF BREATH AND SATURATION LEVELS DROP WHEN HOB IS DECLINED AND/OR PT BECOMES ANXIOUS. PLAN TO GET PATIENT UP FOR ALL MEALS, ORDERS FOR PT/OT PLACED. PT CURRENTLY RESTING IN HOSPITAL BED WITH BED IN LOWEST POSITION, CALL LIGHT WITHIN REACH, PT USES CALL LIGHT APPROPRIATELY.
[2024-04-11 20:56] VITALS: BP 136/69
[2024-04-11] MEDS ORDERED: LORazepam 2 MG/ML 1ML Injection IV SCH (21:10)
[2024-04-12 01:46] VITALS: BP 107/61
--- NOTE | 2024-04-12 06:43 | NUR ---
SHIFT SUMMARY PT ALERT AND ORIENTED TIMES 4. PT ADMITTED FOR ACUTE HYPOXIC RESPIRATORY FAILURE. PT ON BI-PAP AT NIGHT. PT USED BI-PAP FOR SEVERAL HOURS BUT AT ABOUT 0300 IT WAS BLOWING TOO HARD FOR HER AND SHE SWITCHED TO O2 NASAL CANNULA. PT BEDDING AND GOWN CHANGED. PT HAS SMALL 2MM OPEN SORE DEVELOPING ON COCCYX. PHOTO IN CHART. BILATERAL HEELS ALSO APPEAR RED BUT BLANCHABLE, PHOTOS IN CHART. PT ABLE TO MAKE NEEDS KNOWN. PT O2 STATS IN MID TO LOW 90 S. PT S BED IN LOW POSITION, CALL LIGHT WITHIN REACH, RAILS TIMES 2.
[2024-04-12 07:31] VITALS: BP 122/70
[2024-04-12 08:40] LABS: BASOPHILS ABSOLUTE AUTO 0.02 K/mm3 (0.00-0.23); BASOPHILS PERCENT AUTO 0 % (0-2); EOSINOPHILS ABSOLUTE AUTO 0.02 K/mm3 (0.00-0.68); EOSINOPHILS PERCENT AUTO 0 % (0-6); Hematocrit 33.6 % (33.0-51.0); Hemoglobin 10.4 g/dL (11.5-16.0); IMMATURE GRAN ABSOLUTE AUTO 0.18 K/mm3 (0.00-0.10); IMMATURE GRAN PERCENT AUTO 1 % (0-1); LYMPHOCYTES ABSOLUTE AUTO 2.43 K/mm3 (0.84-5.20); LYMPHOCYTES PERCENT AUTO 17 % (21-46); MONOCYTES ABSOLUTE AUTO 0.97 K/mm3 (0.16-1.47); MONOCYTES PERCENT AUTO 7 % (4-13); Mean Corpuscular HGB 27.4 pg (26.0-34.0); Mean Corpuscular Volume 88 fL (80-100); Mean Platelet Volume 10.4 fL (9.1-12.4); NEUTROPHILS ABSOLUTE AUTO 10.66 K/mm3 (1.96-9.15); NEUTROPHILS PERCENT AUTO 75 % (41-73); Platelet Count 380 K/mm3 (150-400); RDW Coefficient Variation 14.2 % (11.7-14.2); RDW Standard Deviation 45.5 fL (35.1-46.3); White Blood Cell Count 14.28 K/mm3 (4.00-11.30)
[2024-04-12 09:01] LABS: Albumin, Blood 2.7 g/dL (3.4-5.0); Anion Gap 9 mmol/L (3-11); Blood Urea Nitrogen 32 mg/dL (8-24); Bun/Creatinine Ratio 32.8 (12.0-20.0); CO2, Blood 32 mmol/L (21-32); Chloride, Blood 102 mmol/L (98-108); Creatinine, Blood 0.98 mg/dL (0.40-1.00); Glomerular Filtration Rate 59 (60-); Glucose, Blood 136 mg/dL (70-99); Phosphorus, Blood 3.2 mg/dL (2.5-4.9); Potassium, Blood 3.7 mmol/L (3.5-5.5); Sodium, Blood 139 mmol/L (136-145)
[2024-04-12 15:47] VITALS: BP 127/75
--- NOTE | 2024-04-12 18:09 | NUR ---
SHIFT SUMMARY NO ACUTE CHANGES THIS SHIFT. PT REMAINS ON 6 L/MIN VIA NASAL CANNULA AND SATING ABOVE 92%. OCCASIONALSOB AND DESATING AT REST AND EXTREME SOB WITH EXERTION, RN BELIEVES ANXIETY ALSO HAS A HAND IN PT SOB WITH EXERTION OR CARES. DEEP BREATHING AND USE OF OXYMASK EFFECTIVE IN INCREASING SATURATION LEVELS AND RELIEVING SOB. PT DENIES PAIN T/O SHIFT. CONTINUES TO HAVE GOOD APPETITE. UP TO CHAIR OR DANGLING AT BEDSIDE FOR MEALS. PT REPOSITIONED TOLERATED AND ALLOWED BY PT, STAGE II PRESSURE ULCER ON COCCYX. EDUCATED PT RE IMPORTANCE OF ALLOWING FREQUENT REPOSITIONING TO REDUCE SKIN BREAKDOWN. PT REMAINS A/O WITH SOME FORGETFULNESS. PT CURRENTLY DANGLING AT BEDSIDE EATING DINNER WITH CALL LIGHT WITHIN REACH. PT USES CALL LIGHT APPROPRIATELY.
[2024-04-12 20:16] VITALS: BP 112/60
[2024-04-13 00:19] VITALS: BP 117/72
[2024-04-13 04:15] VITALS: BP 124/69
[2024-04-13 04:55] LABS: BASOPHILS ABSOLUTE AUTO 0.01 K/mm3 (0.00-0.23); BASOPHILS PERCENT AUTO 0 % (0-2); EOSINOPHILS PERCENT AUTO 0 % (0-6); IMMATURE GRAN PERCENT AUTO 1 % (0-1); LYMPHOCYTES PERCENT AUTO 10 % (21-46); MONOCYTES PERCENT AUTO 5 % (4-13); Mean Corpuscular HGB 27.3 pg (26.0-34.0); Mean Corpuscular HGB Conc 31.3 g/dL (31.5-36.5); Mean Corpuscular Volume 87 fL (80-100); Mean Platelet Volume 10.4 fL (9.1-12.4); NEUTROPHILS ABSOLUTE AUTO 12.18 K/mm3 (1.96-9.15); NEUTROPHILS PERCENT AUTO 83 % (41-73); Platelet Count 402 K/mm3 (150-400); RDW Coefficient Variation 14.1 % (11.7-14.2); RDW Standard Deviation 45.1 fL (35.1-46.3); Red Blood Cell Count 3.66 M/mm3 (3.80-5.20); White Blood Cell Count 14.69 K/mm3 (4.00-11.30)
[2024-04-13 05:12] LABS: Bun/Creatinine Ratio 40.3 (12.0-20.0); Calcium, Blood 8.1 mg/dL (8.5-10.1); Creatinine, Blood 0.97 mg/dL (0.40-1.00); Potassium, Blood 3.9 mmol/L (3.5-5.5)
--- NOTE | 2024-04-13 05:49 | NUR ---
SHIFT SUMMARY NOC PT A/O X 4. PLEASANT AND COOPERATIVE WITH CARE. VSS. NO ACUTE EVENTS TO REPORT. PT GIVEN SCHEDULED ATIVAN IV AT BEDTIME SO THEY CAN TOLERATE WEARING BIPAP MASK FOR SLEEPING. PT OTHERWISE REMAINS ON 6L/HFNC WHILE AWAKE. PT ON TELE SINUS RHYTHM IN 70'S. PT CURRENTLY RESTING WITH BED IN LOWEST POSITION, AND CALL LIGHT WITHIN REACH.
[2024-04-13] MEDS ORDERED: Ipratropium/Albuterol SulF 2.5-0.5MG/3 ML Amp INH SCH (07:55)
[2024-04-13 08:14] VITALS: BP 106/52
[2024-04-13 14:05] VITALS: BP 122/62
[2024-04-13 16:35] VITALS: BP 107/57
--- NOTE | 2024-04-13 18:10 | NUR ---
SHIFT SUMMARY NO ACUTE CHANGES. VSS. PT LOWER SPIRITS TODAY, MISSES HOME AND HER DOG "DAVID". DAUGHTER IN LAW AND DAVID DID COME TO VISIT PT TODAY AND THIS WAS HELPFUL. PT REMAINS ON 6 L/MIN VIA NASAL CANNULA USING OXY MASK ON OCCASION. UNABLE TO WEEN OXYGEN MORE DUE TO DESATING BELOW 92% AND SOB. PT REFUSES MOST ACTIVITY BESIDES DANGLING AT BEDSIDE OR BSC FOR BM DUE TO ANXIETY AND SOB. PT DENIES PAIN. APPETITE FAIR, ENJOYS HER COMFORT. PT CURRENTLY SITTING UP AT BEDSIDE EATING DINNER, CALL LIGHT WITHIN REACH, - PT USES CALL LIGHT APPROPRIATELY.
[2024-04-13 21:40] VITALS: BP 119/66
[2024-04-14 00:49] VITALS: BP 119/69
[2024-04-14 02:49] VITALS: BP 130/73
--- NOTE | 2024-04-14 04:32 | NUR ---
SHIFT SUMMARY PATIENT HAS SLEPT INTERMITTANTLY THROUGHOUT THE NIGHT. SHE HAS HAD HER ALTERNATED HER C PAP AND NASAL CANNULA DURING THE NIGHT TO KEEP HER 02 SATURATIONS ABOVE 90 PERCENT. PATIENT HAS DENIED PAIN. PATIENT IS ORIENTED X3. SHE HAS HER CALL LIGHT WITHIN REACH AND HAS BEEN INSTRUCTED TO CALL WITH ANY REQUESTS OR NEEDS. SAFETY PRECAUTIONS ARE BEING MAINTAINED.
[2024-04-14 05:18] LABS: BASOPHILS ABSOLUTE AUTO 0.01 K/mm3 (0.00-0.23); BASOPHILS PERCENT AUTO 0 % (0-2); EOSINOPHILS ABSOLUTE AUTO 0.02 K/mm3 (0.00-0.68); EOSINOPHILS PERCENT AUTO 0 % (0-6); Hemoglobin 10.4 g/dL (11.5-16.0); IMMATURE GRAN ABSOLUTE AUTO 0.14 K/mm3 (0.00-0.10); IMMATURE GRAN PERCENT AUTO 1 % (0-1); LYMPHOCYTES ABSOLUTE AUTO 2.73 K/mm3 (0.84-5.20); LYMPHOCYTES PERCENT AUTO 19 % (21-46); MONOCYTES ABSOLUTE AUTO 1.06 K/mm3 (0.16-1.47); MONOCYTES PERCENT AUTO 7 % (4-13); Mean Corpuscular HGB 27.7 pg (26.0-34.0); Mean Corpuscular HGB Conc 31.5 g/dL (31.5-36.5); Mean Corpuscular Volume 88 fL (80-100); Mean Platelet Volume 10.7 fL (9.1-12.4); NEUTROPHILS ABSOLUTE AUTO 10.53 K/mm3 (1.96-9.15); NEUTROPHILS PERCENT AUTO 73 % (41-73); Platelet Count 433 K/mm3 (150-400); RDW Coefficient Variation 14.2 % (11.7-14.2); RDW Standard Deviation 45.5 fL (35.1-46.3); Red Blood Cell Count 3.76 M/mm3 (3.80-5.20); White Blood Cell Count 14.49 K/mm3 (4.00-11.30)
[2024-04-14 05:46] LABS: Albumin, Blood 2.8 g/dL (3.4-5.0); Bilirubin, Total 0.4 mg/dL (0.1-1.0); Bun/Creatinine Ratio 38.5 (12.0-20.0); Calcium, Blood 8.4 mg/dL (8.5-10.1); Creatinine, Blood 0.99 mg/dL (0.40-1.00); Globulin, Blood 2.8 g/dL (2.2-4.0); Magnesium, Blood 2.4 mg/dL (1.6-2.4); Phosphorus, Blood 3.2 mg/dL (2.5-4.9); Potassium, Blood 3.7 mmol/L (3.5-5.5); Total Protein, Blood 5.6 g/dL (6.4-8.2)
[2024-04-14 07:51] VITALS: BP 129/72
[2024-04-14] MEDS ORDERED: ELIQUIS5 M2 PO (12:32)
[2024-04-14] MEDS ORDERED: BUPR150ER PO (12:33)
[2024-04-14] MEDS ORDERED: BENZ100A PO (12:33)
[2024-04-14] MEDS ORDERED: FURO40 PO (12:34)
[2024-04-14] MEDS ORDERED: IPRAT-ALBUT 0.5-3 ML INH (12:34)
[2024-04-14] MEDS ORDERED: Flonase 0.05% N16 GM (12:34)
[2024-04-14] MEDS ORDERED: LORA.5 PO (12:35)
[2024-04-14] MEDS ORDERED: MELATONIN5 M1 PO (12:36)
[2024-04-14] MEDS ORDERED: LOSA50 PO (12:36)
[2024-04-14] MEDS ORDERED: TRAZ50 PO (12:37)
[2024-04-14] MEDS ORDERED: PRED20 PO (12:37)
[2024-04-14] MEDS ORDERED: VISBIOME 112.51 EACH PO (12:38)
== END 2024-04-14 14:54 | disposition home health service (06) | DRG 871 ==
LOC: ER 00:10 → MEDS 02:09 → ERHOLD 02:09 → MEDS 04:27
PROVIDERS: Emergency Medicine; Family Medicine; Nurse Practitioner Acute Care; Physician Assistant; Student in an Organized Health Care Education/Training Program; ADMIT Internal Medicine
PROC: 3E03329 Introduction of Other Anti-infective into Peripheral Vein, Percutaneous Approach (ICD-10-PCS; 2024-04-02)
PROC: 5A0955A Assistance with Respiratory Ventilation, Greater than 96 Consecutive Hours, High Flow/Velocity Cannula (ICD-10-PCS; 2024-04-04)
PROC: 5A09557 Assistance with Respiratory Ventilation, Greater than 96 Consecutive Hours, Continuous Positive Airway Pressure (ICD-10-PCS; principal; 2024-04-06)
DX: A41.9 Sepsis, unspecified organism (principal); I26.93 Single subsegmental thrombotic pulmonary embolism without acute cor pulmonale; I50.31 Acute diastolic (congestive) heart failure; J96.01 Acute respiratory failure with hypoxia; J18.9 Pneumonia, unspecified organism; J96.02 Acute respiratory failure with hypercapnia; J44.0 Chronic obstructive pulmonary disease with (acute) lower respiratory infection; F32.A Depression, unspecified; J43.2 Centrilobular emphysema; I25.10 Atherosclerotic heart disease of native coronary artery without angina pectoris; E66.9 Obesity, unspecified; Z99.81 Dependence on supplemental oxygen; F41.9 Anxiety disorder, unspecified; I11.0 Hypertensive heart disease with heart failure; Z88.2 Allergy status to sulfonamides; Z87.891 Personal history of nicotine dependence; Z90.13 Acquired absence of bilateral breasts and nipples; Z90.710 Acquired absence of both cervix and uterus; Z98.890 Other specified postprocedural states; Z79.899 Other long term (current) drug therapy; I25.2 Old myocardial infarction; Z98.42 Cataract extraction status, left eye; Z98.41 Cataract extraction status, right eye
CPT/HCPCS: 0241U; 36415; 71045; 71046; 71260; 80048; 80053; 80069; 82330; 82803; 83605; 83735; 83880; 84100; 84132; 84145; 84484; 85025; 85520; 85610; 85730; 87040; 87070; 87077; 87205; 93005; 93010; 93306; 94640; 94660; 94664; 94760; 94761; 94762; 97116; 97161; 97530; 99285-25; A9270; J0456; J0696; J1644; J1940; J2060; J2270; J2919; J3475; J7030; J7050; J7512; Q9967